=== PATIENT | female | born 2000 | race Caucasian/White ===

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

== ENCOUNTER 2019-05-30 07:32 | Emergency (ER) | payer MEDICAID ==
[~2019-05-30] VITALS: Ht 157.5 cm; Wt 56.0 kg
[2019-05-30] MEDS ORDERED: DULC5TAB PO (07:42)
[2019-05-30] MEDS ORDERED: METOCLOPRAMIDE INJ 10MG/2ML VIAL (J2765) IV ONE (08:00)
[2019-05-30] MEDS ORDERED: NS 1,000 ML IV ONE (08:00)
[2019-05-30] MEDS ORDERED: ACETAMINOPHEN 325 MG TAB PO ONE (08:00)
[2019-05-30 08:15] LABS: BASO % 0.2 % (0.0-1.0); EOS % 0.1 % (0.0-3.0); HEMATOCRIT 36.5 % (36.0-47.0); HEMOGLOBIN 11.7 g/dl (12.0-15.5); LYMPH # 1.9 10^3/uL (1.5-5.0); LYMPH % 11.2 % (24.0-44.0); MEAN CORPUSCULAR HEMOGLOBIN 24.7 pg (27.0-33.0); MEAN CORPUSCULAR HGB CONC 32.1 g/dl (32.0-36.5); MONO # 1.2 10^3/uL (0.0-0.8); MONO % 6.8 % (0.0-5.0); NEUTROPHILS # 13.9 10^3/uL (1.5-8.5); NEUTROPHILS % 81.2 % (36.0-66.0); PLATELET COUNT, AUTOMATED 330 10^3/uL (150-450); RED BLOOD COUNT 4.74 10^6/uL (4.00-5.40); WHITE BLOOD COUNT 17.1 10^3/uL (4.0-10.0)
[2019-05-30 08:20] LABS: ALBUMIN 3.8 GM/DL (3.2-5.2); ALT/SGPT 30 U/L (12-78); BILIRUBIN,DIRECT 0.1 MG/DL (0.0-0.2); BILIRUBIN,TOTAL 0.5 MG/DL (0.2-1.0); BLOOD UREA NITROGEN 8 MG/DL (7-18); CALCIUM LEVEL 9.2 MG/DL (8.5-10.1); CARBON DIOXIDE LEVEL 18 MEQ/L (21-32); CHLORIDE LEVEL 108 MEQ/L (98-107); CREATININE FOR GFR 0.84 MG/DL (0.55-1.30); GLUCOSE, FASTING 116 MG/DL (70-100); LIPASE 57 U/L (73-393); POTASSIUM SERUM 3.1 MEQ/L (3.5-5.1); SODIUM LEVEL 139 MEQ/L (136-145); TOTAL PROTEIN 8.4 GM/DL (6.4-8.2)
[2019-05-30] MEDS ORDERED: POTASSIUM CHLORIDE 10 MEQ SR TABLET PO ONE (09:30)
--- NOTE | 2019-05-30 09:31 | REP ---
Clinical: Right flank pain. Technique: Real time forrest scale ultrasound examination using curved array transducer. Findings: The bilateral kidneys are normal in contour, size, echogenicity, and reniform shape without hydronephrosis, nephrolithiasis, cystic or renal mass lesion. Right kidney measures 9.5 x 4.4 x 3.8 cm. Left kidney measures 9.3 x 3.2 x 4.1 cm. Bladder is unremarkable. Impression: Normal renal ultrasound. Electronically Signed by Sulaiman Petty MD 05/30/2019 09:22 A
--- NOTE | 2019-05-30 10:34 | REP ---
Clinical: Pelvic pain with reported . Technique: Transabdominal pelvic ultrasound followed by transvaginal examination for better evaluation of the endometrium and adnexa with color Doppler evaluation of the ovaries. Findings: Normal anteverted uterus measures 7.8 x 3.8 x 5.2 cm. Endometrial complex measures 7.6 mm thickness. No uterine or endometrial abnormalities are appreciated. The bilateral ovaries are normal in appearance and vascularity without torsion. Right ovary measures 2.2 x 2.1 x 2.2 cm (RI 0.67) left ovary measures 3.3 x 2.4 x 2.0 cm (RI 0.64) no pelvic fluid. Impression: Normal pelvic ultrasound. Electronically Signed by Sulaiman Petty MD 05/30/2019 10:25 A
[2019-05-30 11:07] VITALS: BP 91/57
--- NOTE | 2019-05-30 11:12 | REP ---
Clinical: Right flank pain. Technique: Axial noncontrast images from the lung bases to the pubic symphysis with coronal and sagittal re-formations. Findings: Lung bases are clear. Liver, spleen, pancreas, gallbladder, the bilateral adrenal glands and kidneys are normal for noncontrast evaluation. The enteric system is without obstruction or acute inflammatory process. Normal terminal ileum and appendix are identified in the right lower quadrant. Pelvis demonstrates normal bladder and age-appropriate uterus/adnexa. No ascites. No free air. No adenopathy. Abdominal aorta without aneurysm. Musculoskeletal structures are intact. Impression: Normal noncontrast CT of the abdomen and pelvis. Electronically Signed by Sulaiman Petty MD 05/30/2019 11:03 A
[2019-05-30] MEDS ORDERED: CIPROFLOXACIN 400 MG in IV 1 EA IV ONE (11:15)
[2019-05-30] MEDS ORDERED: CIPR-249 PO (12:58)
--- NOTE | 2019-05-31 07:39 | ECGEPIP ---
[facility] - ED Test Date: 2019-05-30 Pat Name: JOSELITO TUBBS Department: Room: - Gender: Female [employer]: : 2000 Requested By: URVASHI Meraz PA-C Order Number: [id number] Reading MD: Faheem Mejias Measurements Intervals [place] Rate: 86 P: 75 NE: 196 QRS: 47 QRSD: 89 T: 22 QT: 367 QTc: 439 Interpretive Statements SINUS RHYTHM Comparison tracing not on file Electronically Signed on 05-31-2019 7:39:35 EST by Faheem Mejias
[2019-06-01] MEDS ORDERED: BACT800T5 PO (18:52)
== END 2019-05-30 13:10 | disposition home or self-care (01) ==
LOC: M ED 07:32
DX: N10 Acute pyelonephritis (principal); N39.0 Urinary tract infection, site not specified; Z88.0 Allergy status to penicillin; Z91.040 Latex allergy status
CPT/HCPCS: 36415; 74176; 76775; 76830; 76856; 80048; 80076; 81001; 83690; 84702; 85025; 87088; 87186; 93005; 93976; 96361; 96365; 96366; 96374; 99284; J0744; J2765